=== PATIENT | male | born 1945 | race Caucasian/White ===

== ENCOUNTER 2018-05-12 11:56 | Observation (INO) | payer BC, OTHER ==
--- NOTE | 2018-05-12 12:28 | PDOC ---
History of Present Illness - General Chief Complaint: Chest Pain Stated Complaint: PALPITATIONS Time Seen by Provider: 05/12/18 12:28 - History of Present Illness Initial Comments: 72 year old male with history of NIDDM, HTN, HLD, and prostate CA (radiation only, last treatment 3 days prior) presenting with two days of left sided, intermittent mild-moderate chest pressure with palpitations. Patient describes his pain as a pressure, maximum 5/10 in intensity, non radiating, intermittent, no obvious exacerbating/ relieving factors, and does no co-present with diaphoresis/ nausea/ vomiting/ sob/ or other symptoms. Patient has never had this pressure in the past. Denies any recent fevers, chills, cough, nausea, vomiting, diarrhea or other sick symptoms. 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 05/12/18 13:14 Past History - Past Medical History Allergies/Adverse Reactions: Allergies Allergy/AdvReac Type Severity Reaction Status Date / Time azithromycin [From Zithromax] Allergy Intermediate Swelling Verified 05/12/18 12 :00 Home Medications: Ambulatory Orders Losartan/Hydrochlorothiazide [Losartan-Hctz 100-12.5 mg Tab] 1 each PO DAILY Metoprolol Succinate 25 mg PO DAILY 05/12/18 Verapamil HCl [Verapamil ER] 120 mg PO DAILY 05/12/18 metFORMIN HCL [Metformin HCl] 500 mg PO TID 05/12/18 Aspirin [ASA -] 81 mg PO DAILY #30 tab.chew 05/13/18 [place]-3 Acid Ethyl Esters [Lovaza -] 2 gm PO BID #60 cap 05/13/18 Cancer: Yes (PROASTATE) COPD: No Diabetes: Yes HTN: Yes - Surgical History Abdominal Surgery: Yes (RT ING.) - Suicide/Smoking/Psychosocial Hx Smoking Status: No Smoking History: Former smoker Have you smoked in the past 12 months: No Number of Cigarettes Smoked Daily: 0 Information on smoking cessation initiated: No Hx Alcohol Use: No Drug/Substance Use Hx: No Substance Use Type: None Review of Systems - Review of Systems Constitutional: No: Chills, Diaphoresis, Fever, Loss of Appetite HEENTM: No: Eye Pain, Blurred Vision, Tearing Respiratory: No: Cough, Orthopnea, Shortness of Breath, Stridor Cardiac (ROS): Yes: Chest Pain, Palpitations. No: Irregular Heart Rate : No: Dysuria, Discharge, Frequency Musculoskeletal: No: Back Pain, Gout, Joint Pain Integumentary: No: Bruising, Lesions, Lumps, Pallor Neurological: No: Numbness, Paresthesia, Tremors, Weakness Psychiatric: No: Anxiety, Depression Endocrine: No: Flushing, Increased Hunger Hematologic/Lymphatic: No: Anemia, Blood Clots, Easy Bleeding *Physical Exam - Vital Signs Last Vital Signs Temp Pulse Resp BP Pulse Ox 99.0 F 84 18 148/79 95 05/12/18 12:00 05/12/18 12:00 05/12/18 12:00 05/12/18 12:00 05/12/18 12:00 - Physical Exam General Appearance: Yes: Nourished, Appropriately Dressed. No: Apparent Distress HEENT: positive: EOMI, RAMONA, Normal ENT Inspection, Normal Voice Neck: positive: Trachea midline, Normal Thyroid, Supple. negative: Tender, Rigid Respiratory/Chest: positive: Lungs Clear, Normal Breath Sounds. negative: Chest Tender, Respiratory Distress, Accessory Muscle Use Cardiovascular: positive: Regular Rhythm, Regular Rate Gastrointestinal/Abdominal: positive: Normal Bowel Sounds, Flat, Soft. negative : Tender Musculoskeletal: positive: Normal Inspection. negative: Decreased Range of Motion Extremity: positive: Normal Capillary Refill, Normal Inspection, Normal Range of Motion. negative: Tender Integumentary: positive: Normal Color, Dry, Warm Neurologic: positive: Fully Oriented, Alert, Normal Mood/Affect, Normal Response , Motor Strength 5/5 Heart Score/ECG Review - History History: Moderately suspicious - Electrocardiogram EKG: Normal - Age Age: >/= 65 - Risk Factors Risk Factors Heart Score: Yes Hx Hypercholesterolemia, Yes Hx Hypertension, Yes Hx Diabetes, Yes Smoking History Based on the list above the patient has:: >/=3 risk factors or Hx atherosclerotic disease - Troponin Troponin: </= normal limit - Score Heart Score - Total: 5 ED Treatment Course - LABORATORY CBC & Chemistry Diagram: 05/13/18 05:00 05/13/18 05:00 Medical Decision Making - Medical Decision Making 72 year old male presenting with chest pain/ pressure for the past two days. Labs returned WNL, CXR WNL, and first EKG: rate 82, MO 178, QRS 98, QTc 432, and normal axis without ST or T wave changes. Given patient's heart score of 5, patient will be admitted for tele obs and rule out DE. 05/12/18 14:20 *DC/Admit/Observation/Transfer Diagnosis at time of Disposition: Chest pain Qualifiers: Chest pain type: unspecified Qualified Code(s): R07.9 - Chest pain, unspecified - Discharge Dispostion Condition at time of disposition: Stable Decision to Admit order: Yes - Prescriptions - Referrals - Patient Instructions - Post Discharge Activity
--- NOTE | 2018-05-12 12:29 | PDOC ---
Attending Attestation - Resident Resident Name: Rogerio Tolbert - ED Attending Attestation I have performed the following: I have examined & evaluated the patient, The case was reviewed & discussed with the resident, I agree w/resident's findings & plan, Exceptions are as noted - HPI HPI: 05/12/18 14:17 The patient is a 72 year old male, with a significant past medical history of DM , HTN, prostate cancer (s/p resection on radiation), who presents to the emergency department with, 3 days of intermittent chest pain. As per patient, his chest pain onset 3 days ago as a pressure-like, nonradiating sensation that resolved and onset once again last night waking him from his sleep. 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 He denies any recent shortness of breath or palpitations. He denies any recent fevers, chills, headache or dizziness. He denies any recent nausea, vomit, diarrhea or constipation. He denies any recent dysuria, frequency, urgency or hematuria. Allergies: Azithromycin. Past surgical history: Right inguinal hernia repair. Social History: Former smoker. Denies EtOH use and recreational drug use. Primary Care Physician: Dr. Pham Personalization Specialist: Dr. Rosalva Laughlin Attestations - Attestations 05/12/18 14:18 Documentation prepared by Jael Clancy, acting as electromedical equipment technician for Evita Friend MD.
[2018-05-12] MEDS ORDERED: SODIUM CHLORIDE 0.9% 500 ML INFUS.BAG IV ONE (12:46)
[2018-05-12 13:16] LABS: BASO % 0.7 % (0-2.0); EOS % 2.7 % (0-4.5); HEMATOCRIT 38.6 % (35.4-49); HEMOGLOBIN 12.6 GM/dL (11.7-16.9); LYMPH % 21.2 % (8-40); MCH 26.8 pg (25.7-33.7); MCHC 32.7 g/dl (32.0-35.9); MEAN PLT VOLUME 6.8 fl (7.5-11.1); MONO % 8.5 % (3.8-10.2); NEUT % 66.9 % (42.8-82.8); PLATELET COUNT 175 K/MM3 (134-434); RBC 4.71 M/mm3 (4.00-5.60); RDW 15.1 % (11.9-15.9); WHITE BLOOD COUNT 4.1 K/mm3 (4.0-10.0)
[2018-05-12 13:17] LABS: URINE APPEARANCE CLEAR; URINE BILIRUBIN NEGATIVE (<2.0 mg/dL); URINE COLOR LTYELLOW; URINE GLUCOSE (UA) NEGATIVE (NEGATIVE); URINE KETONE NEGATIVE (NEGATIVE); URINE LEUK ESTERASE NEGATIVE (NEGATIVE); URINE NITRITE NEGATIVE (NEGATIVE); URINE PROTEIN NEGATIVE (NEGATIVE); URINE UROBILINOGEN NEGATIVE mg/dL (0.2-1.0)
[2018-05-12 13:31] LABS: INR 0.92 (0.83-1.09); PROTHROMBIN TIME (PATIENT) 10.9 SEC (9.7-13.0)
[2018-05-12 13:38] LABS: ALBUMIN 4.2 g/dl (3.4-5.0); ALK PHOS 68 U/L (45-117); ANION GAP 5 MMOL/L (8-16); BILIRUBIN,TOTAL 0.5 mg/dL (0.2-1); BLOOD UREA NITROGEN 30 mg/dL (7-18); CALCIUM 8.8 mg/dL (8.5-10.1); CHLORIDE 108 mmol/L (98-107); CO2 27 mmol/L (21-32); CREATININE 1.4 mg/dL (0.55-1.3); GLUCOSE,RANDOM 135 mg/dL (74-106); POTASSIUM 5.4 mmol/L (3.5-5.1); SGOT/AST 15 U/L (15-37); SGPT/ALT 21 U/L (13-61); SODIUM 141 mmol/L (136-145); TOT PROT 7.7 g/dl (6.4-8.2)
[2018-05-12] MEDS ORDERED: ASPIRIN 81 MG CHEWABLE TABLETS PO ONE ×2 (13:49→13:50)
[2018-05-12] MEDS ORDERED: ASPIRIN 81 MG CHEWABLE TABLETS ONE (14:06)
--- NOTE | 2018-05-13 04:53 | HP ---
CHIEF COMPLAINT: Chest Pressure PCP: Dr. Pham Director Of Head [facility]: Dr. Blackwell ([facility]) HISTORY OF PRESENT ILLNESS: This is a 72 y/o man with a PMHx of: HTN, HLD (takes garlic), NIDDM, Prostate Ca (Surgery, 10/2017, RT 7 weeks- on week 6- 3 days ago). Who presents to the ED with intermittent left sided chest pressure and palpitations x 3 days. Patient reports that the chest pressure started last Saturday, subsided then returned late Saturday night. Patient reports going to work Saturday no chest pressure, then it returned that evening. Patient reports having stress related to his [employer]. He denies lifting or pulling anything heavy. Patient denies fever, chills , cough, dizziness, SOB, AP, N/V/D, constipation, dysuria. 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- [employer] Family History: Father: [place], PPM age 90 Mother: DM Son: Diabetes Allergies azithromycin [From Zithromax] Allergy (Intermediate, Verified 05/12/18 12:00) Swelling HOME MEDICATIONS: Home Medications Medication Instructions Recorded Losartan/Hydrochlorothiazide 1 each PO DAILY 05/12/18 [Losartan-Hctz 100-12.5 mg Tab] Metoprolol Succinate 25 mg PO DAILY 05/12/18 Verapamil HCl [Verapamil ER] 120 mg PO DAILY 05/12/18 metFORMIN HCL [Metformin HCl] 500 mg PO TID 05/12/18 REVIEW OF SYSTEMS CONSTITUTIONAL: Absent: fever, chills, diaphoresis, generalized weakness, malaise, loss of appetite, weight change HEENT: Absent: rhinorrhea, nasal congestion, throat pain, throat swelling, difficulty swallowing, mouth swelling, ear pain, eye pain, visual changes CARDIOVASCULAR: chest pain, palpitations Absent: syncope, irregular heart rate, lightheadedness, peripheral edema RESPIRATORY: Absent: cough, shortness of breath, dyspnea with exertion, orthopnea, wheezing, stridor, hemoptysis GASTROINTESTINAL: Absent: abdominal pain, abdominal distension, nausea, vomiting, diarrhea, constipation, melena, hematochezia GENITOURINARY: Absent: dysuria, frequency, urgency, hesitancy, hematuria, flank pain, genital pain MUSCULOSKELETAL: Absent: myalgia, arthralgia, joint swelling, back pain, neck pain SKIN: Absent: rash, itching, pallor HEMATOLOGIC/IMMUNOLOGIC: Absent: easy bleeding, easy bruising, lymphadenopathy, frequent infections ENDOCRINE: Absent: unexplained weight gain, unexplained weight loss, heat intolerance, cold intolerance NEUROLOGIC: Absent: headache, focal weakness or paresthesias, dizziness, unsteady gait, seizure, mental status changes, bladder or bowel incontinence PSYCHIATRIC: Absent: anxiety, depression, suicidal or homicidal ideation, hallucinations. PHYSICAL EXAMINATION Vital Signs - 24 hr 05/12/18 05/12/18 05/12/18 12:00 12:28 14:21 Temperature 99.0 F 98.1 F Pulse Rate 84 Pulse Rate [ 82 Right Radial] Respiratory 18 18 Rate Blood Pressure 148/79 Blood Pressure 148/84 [Left Arm] O2 Sat by Pulse 95 100 98 Oximetry (%) 05/12/18 05/12/18 05/12/18 18:44 19:05 21:50 Temperature 99.2 F 97.1 F L 98.9 F Pulse Rate 74 Pulse Rate [ 71 79 Right Radial] Respiratory 18 18 18 Rate Blood Pressure 121/68 Blood Pressure 114/68 129/67 [Left Arm] O2 Sat by Pulse 97 99 99 Oximetry (%) 05/12/18 05/13/18 05/13/18 23:00 02:00 03:00 Temperature 98.1 F Pulse Rate 76 Pulse Rate [ Right Radial] Respiratory 20 20 20 Rate Blood Pressure 121/71 Blood Pressure [Left Arm] O2 Sat by Pulse 99 99 Oximetry (%) GENERAL: Obese, awake, alert, and fully oriented, in no acute distress. HEAD: Normal with no signs of trauma. EYES: Pupils equal, round and reactive to light, extraocular movements intact, sclera anicteric, conjunctiva clear. No lid lag. EARS, NOSE, THROAT: Ears normal, nares patent, oropharynx clear without exudates. Moist mucous membranes. NECK: Normal range of motion, supple without lymphadenopathy, JVD, or masses. LUNGS: Breath sounds equal, clear to auscultation bilaterally. No wheezes, and no crackles. No accessory muscle use. HEART: Regular rate and rhythm, normal S1 and S2 without murmur, rub or gallop. Non-reproducible CP ABDOMEN: Soft, nontender, not distended, normoactive bowel sounds, no guarding, no rebound, no masses. No hepatomegaly or splenomegaly. MUSCULOSKELETAL: Normal range of motion at all joints. No bony deformities or tenderness. No CVA tenderness. UPPER EXTREMITIES: 2+ pulses, warm, well-perfused. No cyanosis. No clubbing. No peripheral edema. LOWER EXTREMITIES: 2+ pulses, warm, well-perfused. No calf tenderness. No peripheral edema. NEUROLOGICAL: Cranial nerves II-XII intact. Normal speech. Gait not observed. PSYCHIATRIC: Cooperative. Good eye contact. Appropriate mood and affect. SKIN: Warm, dry, normal turgor, no rashes or lesions noted, normal capillary refill. Laboratory Results - last 24 hr 05/12/18 05/12/18 05/12/18 12:58 12:58 12:58 WBC 4.1 RBC 4.71 Hgb 12.6 Hct 38.6 MCV 82.0 MCH 26.8 MCHC 32.7 RDW 15.1 Plt Count 175 MPV 6.8 L Absolute Neuts (auto) 2.7 Neutrophils % 66.9 Lymphocytes % 21.2 Monocytes % 8.5 Eosinophils % 2.7 Basophils % 0.7 Nucleated RBC % 0 PT with INR 10.90 INR 0.92 Sodium Potassium Chloride Carbon Dioxide Anion Gap BUN Creatinine Creat Clearance w eGFR Random Glucose Calcium Total Bilirubin AST ALT Alkaline Phosphatase Troponin I Total Protein Albumin Urine Color Ltyellow Urine Appearance Clear Urine pH 5.0 Ur Specific [place] 1.017 Urine Protein Negative Urine Glucose (UA) Negative Urine Ketones Negative Urine Blood Negative Urine Nitrite Negative Urine Bilirubin Negative Urine Urobilinogen Negative Ur Leukocyte Esterase Negative 05/12/18 05/12/18 12:58 18:32 WBC RBC Hgb Hct MCV MCH MCHC RDW Plt Count MPV Absolute Neuts (auto) Neutrophils % Lymphocytes % Monocytes % Eosinophils % Basophils % Nucleated RBC % PT with INR INR Sodium 141 Potassium 5.4 H Chloride 108 H Carbon Dioxide 27 Anion Gap 5 L BUN 30 H Creatinine 1.4 H Creat Clearance w eGFR 49.68 Random Glucose 135 H Calcium 8.8 Total Bilirubin 0.5 AST 15 ALT 21 Alkaline Phosphatase 68 Troponin I < 0.02 < 0.02 Total Protein 7.7 Albumin 4.2 Urine Color Urine Appearance Urine pH Ur Specific [place] Urine Protein Urine Glucose (UA) Urine Ketones Urine Blood Urine Nitrite Urine Bilirubin Urine Urobilinogen Ur Leukocyte Esterase ASSESSMENT/PLAN: This is a 72 y/ man with a PMHx of: HTN, HLD (on Garlic), NIDDM, Prostate Ca ( Surgery, RT). Placed in Telemetry Observation for Chest Pain r/o IA for further evaluation of their emergent condition. Plan: 1. Card: Chest Pain r/o IA HTN HLD HEART Score 5 ELIZABETH 3 Cardiac Monitoring Serial Enzymes Asa given in ED EKG #1 NSR 82bpm, no ST or TWI EKG#2 SR 78 bpm with PVCs Appreciate Cardiology consult Echo Chest Xray- no acute pathology Continue home meds 2. Nephro: ACE Cr 1.4 NS bolus given in ED Hold HCTZ, Metformin Repeat BMP in am 3. Endo: DM controlled BGMs Hold Metformin secondary to ACE ISS Monitor Renal function 4.Oncology: Prostate Ca s/p Prostate Ca Currently on RT f/u with Oncology outpatient as needed FEN PO fluids as tolerated Replete lytes prn Low Na Diabetic Diet DVT ppx OOB SCDs Consider AC if LOS > 48hrs Dispo: Observation Problem List - Problem (1) Chest pain Code(s): R07.9 - CHEST PAIN, UNSPECIFIED (2) ACE (acute kidney injury) Code(s): N17.9 - ACUTE KIDNEY FAILURE, UNSPECIFIED (3) HLD (hyperlipidemia) Code(s): E78.5 - HYPERLIPIDEMIA, UNSPECIFIED (4) HTN (hypertension) Code(s): I10 - ESSENTIAL (PRIMARY) HYPERTENSION (5) Diabetes mellitus Code(s): E11.9 - TYPE 2 DIABETES MELLITUS WITHOUT COMPLICATIONS Visit type - Emergency Visit Emergency Visit: Yes ED Registration Date: 05/12/18 Care time: The patient presented to the Emergency Department on the above date and was hospitalized for further evaluation of their emergent condition. - New Patient This patient is new to me today: Yes Date on this admission: 05/13/18 - Critical Care Critical Care patient: No
[2018-05-13 05:31] LABS: BASO % 0.6 % (0-2.0); EOS % 3.3 % (0-4.5); HEMATOCRIT 35.2 % (35.4-49); LYMPH % 21.5 % (8-40); MCH 27.7 pg (25.7-33.7); MCHC 34.1 g/dl (32.0-35.9); MEAN CELL VOLUME 81.3 fl (80-96); MEAN PLT VOLUME 7.1 fl (7.5-11.1); NEUT % 65.6 % (42.8-82.8); PLATELET COUNT 173 K/MM3 (134-434); RBC 4.33 M/mm3 (4.00-5.60); RDW 14.8 % (11.9-15.9); WHITE BLOOD COUNT 3.3 K/mm3 (4.0-10.0)
[2018-05-13 05:59] LABS: ANION GAP 6 MMOL/L (8-16); BLOOD UREA NITROGEN 25 mg/dL (7-18); CALCIUM 8.9 mg/dL (8.5-10.1); CHLORIDE 109 mmol/L (98-107); CHOLESTEROL 143 mg/dL (50-200); CO2 27 mmol/L (21-32); CREATININE 1.2 mg/dL (0.55-1.3); GLUCOSE,RANDOM 157 mg/dL (74-106); HDL CHOLESTEROL 33 mg/dL (40-60); MAGNESIUM 1.9 mg/dL (1.8-2.4); PHOSPHOROUS 3.4 mg/dL (2.5-4.9); POTASSIUM 4.3 mmol/L (3.5-5.1); SODIUM 142 mmol/L (136-145); TRIGLYCERIDES 269 mg/dL (0-150)
[2018-05-13] MEDS ORDERED: metFORMIN HCL 500 MG TABLET (FP) PO SCH (07:00)
[2018-05-13] MEDS ORDERED: PT OWN MED DRAWER 7, Y5N ONE (09:15)
[2018-05-13] MEDS ORDERED: PATIENT'S OWN MEDICATION (NON-FORMULARY) (Losartan/Hydrochlorothiazide [Losartan-Hctz 100- PO SCH (10:00)
[2018-05-13] MEDS ORDERED: ASPIRIN 81 MG CHEWABLE TABLETS PO SCH (10:00)
[2018-05-13] MEDS ORDERED: metoPROLOL SUCCINATE 25 MG TAB.SR.24H (FP) PO SCH (10:00)
[2018-05-13] MEDS ORDERED: VERAPAMIL HCL 120 MG E.R. TABLET PO SCH (10:00)
[2018-05-13] MEDS ORDERED: LOSARTAN POTASSIUM 50 MG TABLET (FP) PO SCH (10:00)
[2018-05-13] MEDS ORDERED: HYDROCHLOROTHIAZIDE 12.5 MG CAPSULE (FP) PO SCH (10:00)
--- NOTE | 2018-05-13 10:34 | CON.CARD ---
Consult Consult Specialty:: Cardiology Referred by:: Hospitalist Reason for Consultation:: Cardiac evaluation - History of Present Illness Chief Complaint: Chest pressure History of Present Illness: Patient is a 72 year old male with underlying history of NIDDM, HTN, hypercholesterolemia and prostate CA s/p surgery and radiation therapy who presents with left sided sternal chest pressure yesterday morning. He also complained of palpitations. He denies SOB, fever or chills. Denies paroxysmal nocturnal dyspnea or orthopnea. He denies headache or lightheadedness. He denies nausea, vomiting, diarrhea or abdominal pain. He remembers seeing Dr. Jesus Alberto Blackwell of [facility] and also sees Dr. Bill Pham who is his PMD. 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 - History Source History Provided By: Patient, Medical Record Limitations to Obtaining History: No Limitations - Past Medical History Cardio/Vascular: Yes: HTN, Hyperlipdemia Renal/: Yes: Cancer (Prostate CA s/p resection and radiation treatment) Endocrine: Yes: Diabetes Mellitus - Past Surgical History Past Surgical History: Yes: Hernia Repair, Prostatectomy - Alcohol/Substance Use Hx Alcohol Use: No - Smoking History Smoking history: Former smoker Have you smoked in the past 12 months: No Aproximately how many cigarettes per day: 0 Home Medications - Allergies Allergies/Adverse Reactions: Allergies Allergy/AdvReac Type Severity Reaction Status Date / Time azithromycin [From Zithromax] Allergy Intermediate Swelling Verified 05/12/18 12 :00 - Home Medications Home Medications: Ambulatory Orders Losartan/Hydrochlorothiazide [Losartan-Hctz 100-12.5 mg Tab] 1 each PO DAILY Metoprolol Succinate 25 mg PO DAILY 05/12/18 Verapamil HCl [Verapamil ER] 120 mg PO DAILY 05/12/18 metFORMIN HCL [Metformin HCl] 500 mg PO TID 05/12/18 Family Disease History - Family Disease History Other Family History: History of CAD Review of Systems - Review of Systems Constitutional: denies: Chills, Fever Cardiovascular: reports: Chest Pain, Palpitations. denies: Shortness of Breath Respiratory: denies: Cough, Hemoptysis, Orthopnea, PND, SOB, SOB on Exertion Gastrointestinal: denies: Abdominal Pain, Constipation, Diarrhea, Melena, Nausea , Rectal Bleeding, Vomiting Genitourinary: denies: Dysuria, Hematuria Musculoskeletal: denies: Back Pain, Joint Pain Neurological: denies: Dizziness, Headache, Seizure, Syncope Vital Signs: Vital Signs Temperature 98 F 05/13/18 04:39 Pulse Rate 75 05/13/18 04:39 Respiratory Rate 15 05/13/18 04:39 Blood Pressure 125/71 05/13/18 04:39 O2 Sat by Pulse Oximetry (%) 99 05/13/18 04:39 Eyes: Yes: PERRL HENT: Yes: Atraumatic Neck: Yes: Supple Respiratory: Yes: CTA Bilaterally Gastrointestinal: Yes: Normal Bowel Sounds, Soft. No: Tenderness Cardiovascular: Yes: Regular Rate and Rhythm JVD: No Carotid Bruit: No PMI: Non-Displaced Heart Sounds: Yes: S1, S2. No: Gallop Murmur: No: Systolic Murmur, Diastolic Murmur Edema: No - Other Data Labs, Other Data: CBC, BMP 05/13/18 05:00 INR, PTT INR 0.92 (0.83-1.09) 05/12/18 12:58 Troponin, BNP 05/12/18 05/12/18 05/13/18 12:58 18:32 05:00 Troponin I < 0.02 < 0.02 < 0.02 Laboratory Results - last 24 hr 05/12/18 05/12/18 05/12/18 12:58 12:58 12:58 WBC 4.1 RBC 4.71 Hgb 12.6 Hct 38.6 MCV 82.0 MCH 26.8 MCHC 32.7 RDW 15.1 Plt Count 175 MPV 6.8 L Absolute Neuts (auto) 2.7 Neutrophils % 66.9 Lymphocytes % 21.2 Monocytes % 8.5 Eosinophils % 2.7 Basophils % 0.7 Nucleated RBC % 0 PT with INR 10.90 INR 0.92 Sodium Potassium Chloride Carbon Dioxide Anion Gap BUN Creatinine Creat Clearance w eGFR Random Glucose Hemoglobin A1c % Calcium Phosphorus Magnesium Total Bilirubin AST ALT Alkaline Phosphatase Troponin I Total Protein Albumin Triglycerides Cholesterol Total LDL Cholesterol HDL Cholesterol Urine Color Ltyellow Urine Appearance Clear Urine pH 5.0 Ur Specific [place] 1.017 Urine Protein Negative Urine Glucose (UA) Negative Urine Ketones Negative Urine Blood Negative Urine Nitrite Negative Urine Bilirubin Negative Urine Urobilinogen Negative Ur Leukocyte Esterase Negative 05/12/18 05/12/18 05/13/18 12:58 18:32 05:00 WBC RBC Hgb Hct MCV MCH MCHC RDW Plt Count MPV Absolute Neuts (auto) Neutrophils % Lymphocytes % Monocytes % Eosinophils % Basophils % Nucleated RBC % PT with INR INR Sodium 141 Cancelled Potassium 5.4 H Cancelled Chloride 108 H Cancelled Carbon Dioxide 27 Cancelled Anion Gap 5 L Cancelled BUN 30 H Cancelled Creatinine 1.4 H Cancelled Creat Clearance w eGFR 49.68 Cancelled Random Glucose 135 H Cancelled Hemoglobin A1c % Calcium 8.8 Cancelled Phosphorus Magnesium Total Bilirubin 0.5 AST 15 ALT 21 Alkaline Phosphatase 68 Troponin I < 0.02 < 0.02 Total Protein 7.7 Albumin 4.2 Triglycerides Cholesterol Total LDL Cholesterol HDL Cholesterol Urine Color Urine Appearance Urine pH Ur Specific [place] Urine Protein Urine Glucose (UA) Urine Ketones Urine Blood Urine Nitrite Urine Bilirubin Urine Urobilinogen Ur Leukocyte Esterase 05/13/18 05/13/18 05/13/18 05:00 05:00 05:00 WBC 3.3 L RBC 4.33 Hgb 12.0 Hct 35.2 L MCV 81.3 MCH 27.7 MCHC 34.1 RDW 14.8 Plt Count 173 MPV 7.1 L Absolute Neuts (auto) 2.1 Neutrophils % 65.6 Lymphocytes % 21.5 Monocytes % 9.0 Eosinophils % 3.3 Basophils % 0.6 Nucleated RBC % 0 PT with INR INR Sodium 142 Potassium 4.3 Chloride 109 H Carbon Dioxide 27 Anion Gap 6 L BUN 25 H Creatinine 1.2 Creat Clearance w eGFR 59.35 Random Glucose 157 H Hemoglobin A1c % 7.5 H Calcium 8.9 Phosphorus 3.4 Magnesium 1.9 Total Bilirubin AST ALT Alkaline Phosphatase Troponin I < 0.02 Total Protein Albumin Triglycerides 269 H Cholesterol 143 Total LDL Cholesterol 80 HDL Cholesterol 33 L Urine Color Urine Appearance Urine pH Ur Specific [place] Urine Protein Urine Glucose (UA) Urine Ketones Urine Blood Urine Nitrite Urine Bilirubin Urine Urobilinogen Ur Leukocyte Esterase NSR, no ST-T abnormality Echo: Pending Imaging - Results Chest X-ray: Report Reviewed (Unremarkable) EKG: Report Reviewed Problem List - Problems (1) Chest pain Code(s): R07.9 - CHEST PAIN, UNSPECIFIED (2) Diabetes mellitus Code(s): E11.9 - TYPE 2 DIABETES MELLITUS WITHOUT COMPLICATIONS (3) HLD (hyperlipidemia) Code(s): E78.5 - HYPERLIPIDEMIA, UNSPECIFIED (4) HTN (hypertension) Code(s): I10 - ESSENTIAL (PRIMARY) HYPERTENSION Assessment/Plan 1. Chest pain syndrome, rule out CAD, negative troponins 2. HTN 3. NIDDM 4. Hypercholesterolemia PLAN: 1. Trops are negative 2. Continue current cardiac therapy including Verapamil, Metoprolol and Losartan. Continue ASA 3. Echocardiography to assess LV/RV and valvular function 4. Further cardiac work up including nuclear MPI can be done as outpatient with Dr. Jesus Alberto Blackwell (reworker who he saw as outpatient) If above negative, discharge planning Juice Pack MD
--- NOTE | 2018-05-13 11:14 | PN ---
Physical Exam: SUBJECTIVE: Patient seen and examined OBJECTIVE: Vital Signs Period Temp Pulse Resp BP Sys/Paredes Pulse Ox Last 24 Hr 97.1 F-99.2 F 71-84 15-20 114-148/67-84 95-100 GENERAL: The patient is awake, alert, and fully oriented, in no acute distress. HEAD: Normal with no signs of trauma. EYES: PERRL, extraocular movements intact, sclera anicteric, conjunctiva clear. No ptosis. ENT: Ears normal, nares patent, oropharynx clear without exudates, moist mucous membranes. NECK: Trachea midline, full range of motion, supple. LUNGS: Breath sounds equal, clear to auscultation bilaterally, no wheezes, no crackles, no accessory muscle use. HEART: Regular rate and rhythm, S1, S2 without murmur, rub or gallop. ABDOMEN: Soft, nontender, nondistended, normoactive bowel sounds, no guarding, no rebound, no hepatosplenomegaly, no masses. EXTREMITIES: 2+ pulses, warm, well-perfused, no edema. NEUROLOGICAL: Cranial nerves II through XII grossly intact. Normal speech, gait not observed. PSYCH: Normal mood, normal affect. SKIN: Warm, dry, normal turgor, no rashes or lesions noted Laboratory Results - last 24 hr 05/12/18 05/12/18 05/12/18 12:58 12:58 12:58 WBC 4.1 RBC 4.71 Hgb 12.6 Hct 38.6 MCV 82.0 MCH 26.8 MCHC 32.7 RDW 15.1 Plt Count 175 MPV 6.8 L Absolute Neuts (auto) 2.7 Neutrophils % 66.9 Lymphocytes % 21.2 Monocytes % 8.5 Eosinophils % 2.7 Basophils % 0.7 Nucleated RBC % 0 PT with INR 10.90 INR 0.92 Sodium Potassium Chloride Carbon Dioxide Anion Gap BUN Creatinine Creat Clearance w eGFR Random Glucose Hemoglobin A1c % Calcium Phosphorus Magnesium Total Bilirubin AST ALT Alkaline Phosphatase Troponin I Total Protein Albumin Triglycerides Cholesterol Total LDL Cholesterol HDL Cholesterol Urine Color Ltyellow Urine Appearance Clear Urine pH 5.0 Ur Specific [place] 1.017 Urine Protein Negative Urine Glucose (UA) Negative Urine Ketones Negative Urine Blood Negative Urine Nitrite Negative Urine Bilirubin Negative Urine Urobilinogen Negative Ur Leukocyte Esterase Negative 05/12/18 05/12/18 05/13/18 12:58 18:32 05:00 WBC RBC Hgb Hct MCV MCH MCHC RDW Plt Count MPV Absolute Neuts (auto) Neutrophils % Lymphocytes % Monocytes % Eosinophils % Basophils % Nucleated RBC % PT with INR INR Sodium 141 Cancelled Potassium 5.4 H Cancelled Chloride 108 H Cancelled Carbon Dioxide 27 Cancelled Anion Gap 5 L Cancelled BUN 30 H Cancelled Creatinine 1.4 H Cancelled Creat Clearance w eGFR 49.68 Cancelled Random Glucose 135 H Cancelled Hemoglobin A1c % Calcium 8.8 Cancelled Phosphorus Magnesium Total Bilirubin 0.5 AST 15 ALT 21 Alkaline Phosphatase 68 Troponin I < 0.02 < 0.02 Total Protein 7.7 Albumin 4.2 Triglycerides Cholesterol Total LDL Cholesterol HDL Cholesterol Urine Color Urine Appearance Urine pH Ur Specific [place] Urine Protein Urine Glucose (UA) Urine Ketones Urine Blood Urine Nitrite Urine Bilirubin Urine Urobilinogen Ur Leukocyte Esterase 05/13/18 05/13/18 05/13/18 05:00 05:00 05:00 WBC 3.3 L RBC 4.33 Hgb 12.0 Hct 35.2 L MCV 81.3 MCH 27.7 MCHC 34.1 RDW 14.8 Plt Count 173 MPV 7.1 L Absolute Neuts (auto) 2.1 Neutrophils % 65.6 Lymphocytes % 21.5 Monocytes % 9.0 Eosinophils % 3.3 Basophils % 0.6 Nucleated RBC % 0 PT with INR INR Sodium 142 Potassium 4.3 Chloride 109 H Carbon Dioxide 27 Anion Gap 6 L BUN 25 H Creatinine 1.2 Creat Clearance w eGFR 59.35 Random Glucose 157 H Hemoglobin A1c % 7.5 H Calcium 8.9 Phosphorus 3.4 Magnesium 1.9 Total Bilirubin AST ALT Alkaline Phosphatase Troponin I < 0.02 Total Protein Albumin Triglycerides 269 H Cholesterol 143 Total LDL Cholesterol 80 HDL Cholesterol 33 L Urine Color Urine Appearance Urine pH Ur Specific [place] Urine Protein Urine Glucose (UA) Urine Ketones Urine Blood Urine Nitrite Urine Bilirubin Urine Urobilinogen Ur Leukocyte Esterase 05/13/18 05:00 WBC RBC Hgb Hct MCV MCH MCHC RDW Plt Count MPV Absolute Neuts (auto) Neutrophils % Lymphocytes % Monocytes % Eosinophils % Basophils % Nucleated RBC % PT with INR INR Sodium Potassium Chloride Carbon Dioxide Anion Gap BUN Creatinine Creat Clearance w eGFR Random Glucose Hemoglobin A1c % Calcium Phosphorus Magnesium Total Bilirubin AST ALT Alkaline Phosphatase Troponin I Total Protein Albumin Triglycerides Cancelled Cholesterol Cancelled Total LDL Cholesterol Cancelled HDL Cholesterol Cancelled Urine Color Urine Appearance Urine pH Ur Specific [place] Urine Protein Urine Glucose (UA) Urine Ketones Urine Blood Urine Nitrite Urine Bilirubin Urine Urobilinogen Ur Leukocyte Esterase Active Medications Generic Name Dose Route Start Last Admin Trade Name Domingo PRN Reason Stop Dose Admin Aspirin 81 mg 05/13/18 10:00 05/13/18 09:18 Asa - PO 81 mg DAILY MACIEL Administration Losartan Potassium 100 mg 05/13/18 10:00 05/13/18 09:18 Cozaar - PO 100 mg DAILY MACIEL Administration Metoprolol Succinate 25 mg 05/13/18 10:00 05/13/18 09:18 Toprol Xl - PO 25 mg DAILY MACIEL Administration Verapamil HCl 120 mg 05/13/18 10:00 05/13/18 09:19 Calan Sr - PO 120 mg DAILY MACIEL Administration ASSESSMENT/PLAN:
--- NOTE | 2018-05-13 12:25 | ECHO ---
Name: ADILSON GILL Exam:Adult Echocardiogram Study Date: 05/13/2018 10:13 AM Age: 72 yrs Reason For Study: Chest pain Height: 70 in Weight: 223 lb BSA: 2.2 m2 MMode/2D Measurements & Calculations IVSd: 0.88 cm Ao root diam: 3.8 cm LVIDd: 4.9 cm LA dimension: 5.2 cm LVIDs: 2.9 cm ACS: 1.4 cm LVPWd: 0.98 cm IVSs: 1.2 cm LVPWs: 1.3 cm EDV(Teich): 113.8 ml ESV(Teich): 33.3 ml LVOT diam: 2.3 cm Doppler Measurements & Calculations MV E max calixto: 69.1 cm/sec Ao V2 max: 176.7 cm/sec MV A max calixto: 104.9 cm/sec Ao max P.5 mmHg MV E/A: 0.66 Ao V2 mean: 113.2 cm/sec Ao mean P.1 mmHg Ao V2 VTI: 28.3 cm MELISSA(I,D): 2.5 cm2 MELISSA(V,D): 2.0 cm2 LV V1 max P.1 mmHg SV(LVOT): 71.9 ml LV V1 mean P.8 mmHg LV V1 max: 88.4 cm/sec LV V1 mean: 62.9 cm/sec LV V1 VTI: 17.6 cm TR max calixto: 251.8 cm/sec PA V2 max: 150.7 cm/sec TR max P.4 mmHg PA max P.1 mmHg PA V2 mean: 95.6 cm/sec PA mean P.4 mmHg PA V2 VTI: 26.6 cm Med Peak E' Calixto: 5.5 cm/sec Med E/e': 12.6 Lat Peak E' Calixto: 8.7 cm/sec Lat E/e': 8.0 Procedure A two-dimensional transthoracic echocardiogram with color flow and Doppler was performed. The patient was in normal sinus rhythm during the exam. Left Ventricle Left ventricular systolic function is normal. Ejection Fraction = 60%. E/A reversal consistent with b ut not diagnostic of poor LV compliance. Right Ventricle The right ventricle is grossly normal size. The right ventricle is not well visualized. The right shari tricular systolic function is grossly normal. Atria The left atrium is moderately dilated. Right atrial size is normal. Mitral Valve The mitral valve is normal. There is no mitral regurgitation noted. Tricuspid Valve The tricuspid valve is normal. There is trace tricuspid regurgitation. Aortic Valve There is moderate aortic sclerosis.;. The aortic valve is trileaflet. No hemodynamically significant valvular aortic stenosis. No aortic regurgitation is present. Pulmonic Valve The pulmonic valve is not well visualized. The pulmonic valve is not well seen, but is grossly normal . There is no pulmonic valvular regurgitation. Great Vessels Mild aortic root dilatation. Pericardium/Pleura There is no pericardial effusion. Interpretation Summary Left ventricular systolic function is normal. E/A reversal consistent with but not diagnostic of poor LV compliance The right ventricular systolic function is grossly normal. The left atrium is moderately dilated. There is trace tricuspid regurgitation. There is moderate aortic sclerosis.; No hemodynamically significant valvular aortic stenosis. Mild aortic root dilatation. There is no pericardial effusion. MD Jim Baez 05/13/2018 12:25 PM
--- NOTE | 2018-05-13 12:33 | EKG ---
Test Reason : Blood Pressure : / mmHG Vent. Rate : 078 BPM Atrial Rate : 078 BPM P-R Int : 174 ms QRS Dur : 104 ms QT Int : 368 ms P-R-T Axes : 055 -08 009 degrees QTc Int : 419 ms SINUS RHYTHM WITH OCCASIONAL PREMATURE VENTRICULAR COMPLEXES OTHERWISE NORMAL ECG Confirmed by MD ROLAND, RADHA ([id number]) on 05/13/2018 12:33:33 PM Referred By: Confirmed By:RADHA WATKINS MD
--- NOTE | 2018-05-13 13:04 | EKG ---
Test Reason : Blood Pressure : / mmHG Vent. Rate : 082 BPM Atrial Rate : 082 BPM P-R Int : 178 ms QRS Dur : 098 ms QT Int : 370 ms P-R-T Axes : 038 -04 036 degrees QTc Int : 432 ms NORMAL SINUS RHYTHM NORMAL ECG NO PREVIOUS ECGS AVAILABLE Confirmed by MD SIGRID, TASIA ([id number]) on 05/13/2018 1:04:07 PM Referred By: Confirmed By:TASIA MATTA MD
[2018-05-13 15:27] VITALS: BP 122/70; PULSE 79; TEMP 97.9
--- NOTE | 2018-05-13 16:11 | DS ---
Physical Exam: SUBJECTIVE: Patient seen and examined OBJECTIVE: Vital Signs Period Temp Pulse Resp BP Sys/Paredes Pulse Ox Last 24 Hr 97.1 F-99.2 F 71-79 15-20 114-129/67-83 97-99 PHYSICAL EXAM GENERAL: The patient is awake, alert, and fully oriented, in no acute distress. HEAD: Normal with no signs of trauma. EYES: PERRL, extraocular movements intact, sclera anicteric, conjunctiva clear. ENT: Ears normal, nares patent, oropharynx clear without exudates, moist mucous membranes. NECK: Trachea midline, full range of motion, supple. LUNGS: Breath sounds equal, clear to auscultation bilaterally, no wheezes, no crackles, no accessory muscle use. HEART: Regular rate and rhythm, S1, S2 without murmur, rub or gallop. ABDOMEN: Soft, nontender, nondistended, normoactive bowel sounds, no guarding, no rebound, no hepatosplenomegaly, no masses. EXTREMITIES: 2+ pulses, warm, well-perfused, no edema. NEUROLOGICAL: Cranial nerves II through XII grossly intact. Normal speech, gait not observed. PSYCH: Normal mood, normal affect. SKIN: Warm, dry, normal turgor, no rashes or lesions noted. LABS Laboratory Results - last 24 hr 05/12/18 05/13/18 05/13/18 18:32 05:00 05:00 WBC 3.3 L RBC 4.33 Hgb 12.0 Hct 35.2 L MCV 81.3 MCH 27.7 MCHC 34.1 RDW 14.8 Plt Count 173 MPV 7.1 L Absolute Neuts (auto) 2.1 Neutrophils % 65.6 Lymphocytes % 21.5 Monocytes % 9.0 Eosinophils % 3.3 Basophils % 0.6 Nucleated RBC % 0 Sodium Cancelled Potassium Cancelled Chloride Cancelled Carbon Dioxide Cancelled Anion Gap Cancelled BUN Cancelled Creatinine Cancelled Creat Clearance w eGFR Cancelled Random Glucose Cancelled Hemoglobin A1c % Calcium Cancelled Phosphorus Magnesium Troponin I < 0.02 Triglycerides Cholesterol Total LDL Cholesterol HDL Cholesterol 05/13/18 05/13/18 05/13/18 05:00 05:00 05:00 WBC RBC Hgb Hct MCV MCH MCHC RDW Plt Count MPV Absolute Neuts (auto) Neutrophils % Lymphocytes % Monocytes % Eosinophils % Basophils % Nucleated RBC % Sodium 142 Potassium 4.3 Chloride 109 H Carbon Dioxide 27 Anion Gap 6 L BUN 25 H Creatinine 1.2 Creat Clearance w eGFR 59.35 Random Glucose 157 H Hemoglobin A1c % 7.5 H Calcium 8.9 Phosphorus 3.4 Magnesium 1.9 Troponin I < 0.02 Triglycerides 269 H Cancelled Cholesterol 143 Cancelled Total LDL Cholesterol 80 Cancelled HDL Cholesterol 33 L Cancelled HOSPITAL COURSE: Date of Admission:05/12/18 Date of Discharge: 05/13/18 Discharge Summary Reason For Visit: SENSATION OF CHEST PRESSURE Current Active Problems ACE (acute kidney injury) (Acute) Chest pain (Acute) Diabetes mellitus (Acute) HLD (hyperlipidemia) (Acute) HTN (hypertension) (Acute) Condition: Improved - Instructions Diet, Activity, Other Instructions: Mr Simental: You will be discharge home today but you will need to continue to see your balance truing inspector within 1 week for continued follow up. We recommend the following: Hyperlipidemia (high cholesterol). We noted that your triglycerides were elevated on admission. We started you on Lovaza which is an omega 3 fish oil. Please continue this medication twice per day. we recommend that you continue to eat a healthy diet such as low in carbs , fats and sugars as well. Echocardiogram: Your echocardiogram shows that you have left atrium with moderate dilation as well as moderate aortic sclerosis. Please continue to take your home medications and follow up with your balance truing inspector within 1 week. Take the echocardiogram report with you to your balance truing inspector. New medications: Lovaza 2 grams , twice per day Aspirin 81mg daily both new medications have been called into your pharmacy. Thank you for allowing us to care for you. Referrals: Bill Pham MD [Primary Care Provider] - 1 Week Disposition: HOME - Home Medications Comprehensive Discharge Medication List: Ambulatory Orders Losartan/Hydrochlorothiazide [Losartan-Hctz 100-12.5 mg Tab] 1 each PO DAILY Metoprolol Succinate 25 mg PO DAILY 05/12/18 Verapamil HCl [Verapamil ER] 120 mg PO DAILY 05/12/18 metFORMIN HCL [Metformin HCl] 500 mg PO TID 05/12/18 Aspirin [ASA -] 81 mg PO DAILY #30 tab.chew 05/13/18 Irvona-3 Acid Ethyl Esters [Lovaza -] 2 gm PO BID #60 cap 05/13/18
[2018-05-13] MEDS ORDERED: OMEGA-3 ACID ETHYL ESTERS (FATTY-ACIDS) 1 GM CAPSULE (FP) PO SCH (22:00)
== END 2018-05-13 18:32 | disposition home or self-care (01) ==
LOC: JER 11:56 → JERBED 13:52 → J4W 22:18
PROVIDERS: ADMIT Hospitalist; ATTEND Nurse Practitioner Family
PROC: 3E0337Z Introduction of Electrolytic and Water Balance Substance into Peripheral Vein, Percutaneous Approach (ICD-10-PCS; principal; 2018-05-12)
DX: R07.89 Other chest pain (principal); N17.9 Acute kidney failure, unspecified; I10 Essential (primary) hypertension; E78.5 Hyperlipidemia, unspecified; E11.9 Type 2 diabetes mellitus without complications; C61 Malignant neoplasm of prostate; Z87.891 Personal history of nicotine dependence; Z79.84 Long term (current) use of oral hypoglycemic drugs; Z88.1 Allergy status to other antibiotic agents; Z92.3 Personal history of irradiation
CPT/HCPCS: 36415; 71045-TC-FY; 80048; 80053; 80061; 81003; 83036; 83721; 83735; 84100; 84484; 85025; 85610; 93005; 93010; 93306-TC; 99285-25; G0378